=== PATIENT | male | born 1940 | race Caucasian/White ===

== ENCOUNTER 2018-09-17 22:54 | Inpatient (IN) | payer OTHER ==
[~2018-09-17] VITALS: Ht 172.7 cm; Wt 68.0 kg
[2018-09-17 22:55] VITALS: BP_SYST 150
[2018-09-17] MEDS ORDERED: NACL 0.9% 1,000 ML IV ONE (23:09)
[2018-09-17] MEDS ORDERED: KETOROLAC TROMETHAMINE 30 MG VIAL IVP ONE (23:15)
[2018-09-17 23:29] LABS: BASOPHILS % (AUTO) 0.2 % (0.0-2.0); EOSINOPHILS # (AUTO) 0.1 K/uL (0.0-0.4); EOSINOPHILS % (AUTO) 0.5 % (0.0-4.0); HEMATOCRIT 45.4 % (36-54); HEMOGLOBIN 14.7 g/dL (14.0-18.0); LYMPHOCYTES % (AUTO) 7.7 % (20.5-51.5); MEAN CORPUSCULAR HEMOGLOBIN 31 pg (27-31); MEAN CORPUSCULAR HGB CONC 32 % (32-36); MEAN CORPUSCULAR VOLUME 96 fL (79.0-98.0); MONOCYTES # (AUTO) 0.9 K/uL (0.0-1.0); MONOCYTES % (AUTO) 6.9 % (1.7-9.3); NEUTROPHILS # (AUTO) 10.7 K/uL (1.8-7.7); NEUTROPHILS % (AUTO) 84.7 % (40.0-70.0); PLATELET COUNT (AUTO) 218 K/uL (130-430); RED BLOOD CELL COUNT(AUTO) 4.75 MIL/uL (4.2-6.2); WHITE BLOOD COUNT (AUTO) 12.7 K/uL (4.8-10.8)
[2018-09-17 23:44] LABS: ANION GAP 8 (5-15); CALCIUM 10.1 mg/dL (8.4-11.0); CHLORIDE 100 mmol/L (98-107); CREATININE 0.93 mg/dL (0.55-1.30); GLUCOSE 176 mg/dL (70-99); POTASSIUM 3.9 mmol/L (3.5-5.1); SODIUM SERUM 136 mmol/L (136-145); UREA NITROGEN, BLOOD 15 mg/dL (8-21)
[2018-09-17 23:53] LABS: ALANINE AMINOTRANSFERASE 27 U/L (12-78); ALBUMIN 3.7 g/dL (3.4-4.8); ASPARTATE AMINOTRANSFERASE 24 U/L (10-37); TOTAL BILIRUBIN 0.6 mg/dL (0.0-1.0)
[2018-09-18 01:48] VITALS: BP_SYST 151
[2018-09-18] MEDS ORDERED: LIP20 PO (02:22)
[2018-09-18] MEDS ORDERED: LISI-600 PO (02:22)
[2018-09-18] MEDS ORDERED: CHOL200075 PO (02:23)
[2018-09-18] MEDS ORDERED: TIMO5DRO4 OP (02:24)
[2018-09-18] MEDS ORDERED: METO25TA6 PO (02:24)
[2018-09-18] MEDS ORDERED: XALEYE OP (02:25)
[2018-09-18] MEDS ORDERED: ASPI-858 PO (02:25)
[2018-09-18] MEDS ORDERED: CYAN-25 PO (02:27)
[2018-09-18] MEDS ORDERED: DONE10TA44 PO (02:27)
[2018-09-18] MEDS ORDERED: RISP0.5T12 PO (02:28)
[2018-09-18] MEDS ORDERED: FOLI-43 PO (02:29)
[2018-09-18] MEDS ORDERED: MIRA50TA PO (02:29)
[2018-09-18 02:45] VITALS: BP_SYST 151
[2018-09-18 08:00] VITALS: BP_SYST 150
[2018-09-18] MEDS: D5/0.45 NS 1,000 ML IV SCH ×3 (10:49→21:55)
[2018-09-18 11:07] VITALS: BP_SYST 156
[2018-09-18 15:02] VITALS: BP_SYST 139
[2018-09-18 19:25] VITALS: BP_SYST 139
[2018-09-19] MEDS ORDERED: LABETALOL 100 MG/ 20ML VIAL IVP PRN (00:45)
[2018-09-19] MEDS ORDERED: LORazepam 2 MG/ML VIAL IVP PRN (00:45)
[2018-09-19] MEDS: D5/0.45 NS 1,000 ML IV SCH ×2 (06:39→17:38)
[2018-09-19 06:47] LABS: HEMATOCRIT 41.8 % (36-54); RED BLOOD CELL COUNT(AUTO) 4.45 MIL/uL (4.2-6.2); WHITE BLOOD COUNT (AUTO) 16.2 K/uL (4.8-10.8)
[2018-09-19 06:48] LABS: BASOPHILS % (AUTO) 0.1 % (0.0-2.0); LYMPHOCYTES # (AUTO) 0.9 K/uL (1.0-5.5); LYMPHOCYTES % (AUTO) 5.5 % (20.5-51.5); MEAN CORPUSCULAR HEMOGLOBIN 32 pg (27-31); MEAN CORPUSCULAR HGB CONC 34 % (32-36); MEAN CORPUSCULAR VOLUME 94 fL (79.0-98.0); MONOCYTES # (AUTO) 1.2 K/uL (0.0-1.0); MONOCYTES % (AUTO) 7.1 % (1.7-9.3); NEUTROPHILS # (AUTO) 14.1 K/uL (1.8-7.7); NEUTROPHILS % (AUTO) 87.3 % (40.0-70.0); PLATELET COUNT (AUTO) 200 K/uL (130-430); RED CELL DISTRIBUTION WIDTH 13.4 % (9.0-15.0)
[2018-09-19 06:49] LABS: ANION GAP 9 (5-15); CALCIUM 9.8 mg/dL (8.4-11.0); CHLORIDE 100 mmol/L (98-107); CREATININE 0.85 mg/dL (0.55-1.30); GLUCOSE 178 mg/dL (70-99); POTASSIUM 3.7 mmol/L (3.5-5.1); SODIUM SERUM 134 mmol/L (136-145); UREA NITROGEN, BLOOD 14 mg/dL (8-21)
[2018-09-19 08:00] VITALS: BP_SYST 161
[2018-09-19] MEDS ORDERED: GASTROGRAFIN 120 ML ONE (13:06)
[2018-09-19 13:16] VITALS: BP_SYST 177
[2018-09-19] MEDS: LABETALOL 100 MG/ 20ML VIAL IVP PRN (14:27)
[2018-09-19] MEDS: ONDANSETRON HCL 4 MG/2 ML VIAL IVP PRN (15:34)
[2018-09-19 17:00] VITALS: BP_SYST 157
[2018-09-19 20:00] VITALS: BP_SYST 161
[2018-09-19] MEDS ORDERED: LATANOPROST 2.5 ML DROPS (XALATAN) OP SCH (21:00)
[2018-09-19] MEDS ORDERED: TIMOLOL MALEATE 0.5% OPHTHALMIC DROPS 5 ML OP SCH (21:00)
[2018-09-19] MEDS: AMPICILLIN SODIUM/SULBACTAM NA 3 GM in NS 100 ML IV SCH (21:44)
[2018-09-20] VITALS (17 sets, daily range): BP systolic 121–182
[2018-09-20] MEDS: ONDANSETRON HCL 4 MG/2 ML VIAL IVP PRN ×2 (01:31→19:37)
[2018-09-20] MEDS: D5/0.45 NS 1,000 ML IV SCH (03:45)
[2018-09-20] MEDS ORDERED: ALBUTEROL SULFATE 0.083% 2.5 MG/3 ML VIAL.NEB INH PRN (05:15)
[2018-09-20] MEDS: AMPICILLIN SODIUM/SULBACTAM NA 3 GM in NS 100 ML IV SCH ×3 (05:35→21:20)
[2018-09-20 06:43] LABS: ANION GAP 7 (5-15); C-REACTIVE PROTEIN QUANT 2.5 mg/dL (0-0.5); CALCIUM 9.8 mg/dL (8.4-11.0); CHLORIDE 99 mmol/L (98-107); CREATININE 0.97 mg/dL (0.55-1.30); GLUCOSE 222 mg/dL (70-99); POTASSIUM 3.2 mmol/L (3.5-5.1); SODIUM SERUM 135 mmol/L (136-145); UREA NITROGEN, BLOOD 19 mg/dL (8-21)
[2018-09-20 06:53] LABS: BASOPHILS % (AUTO) 0.1 % (0.0-2.0); HEMATOCRIT 43.1 % (36-54); HEMOGLOBIN 14.4 g/dL (14.0-18.0); LYMPHOCYTES # (AUTO) 0.6 K/uL (1.0-5.5); LYMPHOCYTES % (AUTO) 5.4 % (20.5-51.5); MEAN CORPUSCULAR HEMOGLOBIN 32 pg (27-31); MEAN CORPUSCULAR HGB CONC 34 % (32-36); MEAN CORPUSCULAR VOLUME 94 fL (79.0-98.0); MONOCYTES # (AUTO) 0.5 K/uL (0.0-1.0); MONOCYTES % (AUTO) 4.7 % (1.7-9.3); NEUTROPHILS # (AUTO) 10.1 K/uL (1.8-7.7); NEUTROPHILS % (AUTO) 89.8 % (40.0-70.0); PLATELET COUNT (AUTO) 201 K/uL (130-430); RED BLOOD CELL COUNT(AUTO) 4.59 MIL/uL (4.2-6.2); RED CELL DISTRIBUTION WIDTH 13.3 % (9.0-15.0); WHITE BLOOD COUNT (AUTO) 11.2 K/uL (4.8-10.8)
[2018-09-20] MEDS ORDERED: LEVOFLOXACIN 500 MG/D5W 100 ML IV ONE (08:00)
[2018-09-20 09:15] LABS: ERYTHROCYTE SEDIMENTATION RATE 13 MM/HR (0-15)
[2018-09-20] MEDS: TIMOLOL MALEATE 0.5% OPHTHALMIC DROPS 5 ML OP SCH ×2 (11:08→20:34)
[2018-09-20] MEDS ORDERED: POTASSIUM CHLORIDE 40 MEQ, LIDOCAINE JECT 2% PF 100 MG 50 MG in NS 250 ML IV ONE (12:00)
[2018-09-20] MEDS: LevALBUTEROL HCL 1.25 MG/0.5 ML *CONC.* VIAL.NEB (XOPENEX CONC.) INH SCH ×2 (15:37→20:17)
[2018-09-20] MEDS: D5NS 1,000 ML IV SCH ×2 (16:06→21:20)
[2018-09-20] MEDS: LATANOPROST 2.5 ML DROPS (XALATAN) OP SCH (20:22)
[2018-09-20] MEDS: LABETALOL 100 MG/ 20ML VIAL IVP PRN (23:17)
[2018-09-20] MEDS: MORPHINE 2 MG/ML INJ. SYRINGE IVP PRN (23:22)
[2018-09-21] VITALS (22 sets, daily range): BP systolic 111–174
[2018-09-21] MEDS: D5NS 1,000 ML IV SCH ×2 (03:19→18:11)
[2018-09-21] MEDS: ONDANSETRON HCL 4 MG/2 ML VIAL IVP PRN ×2 (04:17→09:38)
[2018-09-21 05:01] LABS: ALANINE AMINOTRANSFERASE 12 U/L (12-78); ALBUMIN 2.5 g/dL (3.4-4.8); ANION GAP 3 (5-15); ASPARTATE AMINOTRANSFERASE 14 U/L (10-37); CHLORIDE 107 mmol/L (98-107); CREATININE 0.91 mg/dL (0.55-1.30); GLUCOSE 155 mg/dL (70-99); POTASSIUM 3.4 mmol/L (3.5-5.1); SODIUM SERUM 140 mmol/L (136-145); TOTAL BILIRUBIN 0.5 mg/dL (0.0-1.0); UREA NITROGEN, BLOOD 21 mg/dL (8-21)
[2018-09-21 05:07] LABS: INR 1.1 (0.80-1.20); PROTHROMBIN TIME 11.4 SECS (9.5-12.5)
[2018-09-21 05:09] LABS: BASOPHILS # (AUTO) 0.1 K/uL (0.0-0.2); BASOPHILS % (AUTO) 0.8 % (0.0-2.0); EOSINOPHILS % (AUTO) 0.5 % (0.0-4.0); HEMATOCRIT 36.5 % (36-54); HEMOGLOBIN 12.2 g/dL (14.0-18.0); LYMPHOCYTES # (AUTO) 0.7 K/uL (1.0-5.5); LYMPHOCYTES % (AUTO) 7.8 % (20.5-51.5); MEAN CORPUSCULAR HEMOGLOBIN 32 pg (27-31); MEAN CORPUSCULAR HGB CONC 33 % (32-36); MONOCYTES # (AUTO) 0.5 K/uL (0.0-1.0); MONOCYTES % (AUTO) 5.6 % (1.7-9.3); NEUTROPHILS # (AUTO) 8.1 K/uL (1.8-7.7); NEUTROPHILS % (AUTO) 85.3 % (40.0-70.0); PLATELET COUNT (AUTO) 155 K/uL (130-430); RED CELL DISTRIBUTION WIDTH 13.1 % (9.0-15.0); WHITE BLOOD COUNT (AUTO) 9.4 K/uL (4.8-10.8)
[2018-09-21 05:17] LABS: MEAN CORPUSCULAR VOLUME 96 fL (79.0-98.0)
[2018-09-21] MEDS: AMPICILLIN SODIUM/SULBACTAM NA 3 GM in NS 100 ML IV SCH ×3 (05:26→22:00)
[2018-09-21 05:27] LABS: C-REACTIVE PROTEIN QUANT 10.7 mg/dL (0-0.5)
[2018-09-21 06:08] LABS: ERYTHROCYTE SEDIMENTATION RATE 25 MM/HR (0-15)
[2018-09-21] MEDS: LevALBUTEROL HCL 1.25 MG/0.5 ML *CONC.* VIAL.NEB (XOPENEX CONC.) INH SCH ×3 (07:49→20:27)
[2018-09-21] MEDS ORDERED: POTASSIUM CHLORIDE 40 MEQ, LIDOCAINE JECT 2% PF 100 MG 50 MG in NS 250 ML IV ONE (09:30)
[2018-09-21] MEDS: LEVOFLOXACIN 500 MG/D5W 100 ML IV SCH (09:37)
[2018-09-21] MEDS: TIMOLOL MALEATE 0.5% OPHTHALMIC DROPS 5 ML OP SCH ×2 (09:38→20:39)
[2018-09-21 15:04] LABS: BILIRUBIN,URINE NEGATIVE (NEGATIVE); BLOOD, URINE NEGATIVE (NEGATIVE); CLARITY/URINE CLEAR (CLEAR); COLOR,URINE YELLOW (YELLOW); GLUCOSE,URINE NEGATIVE (NEGATIVE); KETONES,URINE NEGATIVE (NEGATIVE); LEUKOCYTE ESTERASE ,URINE NEGATIVE (NEGATIVE); NITRITE, URINE NEGATIVE (NEGATIVE); PROTEIN URINE 1+ (NEGATIVE)
[2018-09-21 15:18] LABS: BACTERIA,URINE FEW /HPF (None Seen); MUCUS,URINE 2+ /LPF (None Seen); RBC,URINE 0-3 /HPF (0-3); WBC,URINE 0-3 /HPF (0-3)
[2018-09-21] MEDS ORDERED: LR 1,000 ML IV SCH (16:23)
[2018-09-21] MEDS ORDERED: MORPHINE 4 MG/ML INJ. SYRINGE IVP PRN ×3 (16:30)
[2018-09-21] MEDS ORDERED: METOCLOPRAMIDE HCL 10 MG/2 ML VIAL IVP PRN (16:30)
[2018-09-21] MEDS ORDERED: MIDAZOLAM HCL 5 MG/ML VIAL (VERSED) IV ONE (16:55)
[2018-09-21] MEDS ORDERED: LR 1,000 ML IV.SOLN IV ONE (16:55)
[2018-09-21] MEDS ORDERED: fentaNYL CITRATE/PF 100 MCG/2 ML AMP ONE (16:55)
[2018-09-21] MEDS ORDERED: SUGAMMADEX SODIUM 200 MG/2 ML VIAL IV ONE (16:55)
[2018-09-21] MEDS ORDERED: ROCURONIUM BROMIDE 10 MG/ML (ZEMURON) ONE (16:55)
[2018-09-21] MEDS ORDERED: ONDANSETRON HCL 4 MG/2 ML VIAL ONE (16:55)
[2018-09-21] MEDS ORDERED: NS IRRIG SOLN 1000 ML IR ONE (16:55)
[2018-09-21] MEDS ORDERED: SEVOFLURANE 15 MIN GAS INH ONE (16:55)
[2018-09-21] MEDS ORDERED: SUCCINYLCHOLINE CHLORIDE 20 MG/ML(QUELICIN) ONE (16:55)
[2018-09-21] MEDS ORDERED: PROPOFOL 200MG/ 20ML VIAL (DIPRIVAN) IV ONE (16:55)
[2018-09-21] MEDS ORDERED: MORPHINE 4 MG/ML INJ. SYRINGE ONE (17:10)
[2018-09-21] MEDS: LABETALOL 100 MG/ 20ML VIAL IVP PRN (20:01)
[2018-09-21] MEDS: MORPHINE 2 MG/ML INJ. SYRINGE IVP PRN ×2 (20:03→22:26)
[2018-09-21] MEDS: LATANOPROST 2.5 ML DROPS (XALATAN) OP SCH (20:59)
[2018-09-22] VITALS (24 sets, daily range): BP systolic 112–149
[2018-09-22] MEDS: MORPHINE 2 MG/ML INJ. SYRINGE IVP PRN ×6 (01:34→22:10)
[2018-09-22] MEDS: D5NS 1,000 ML IV SCH (03:38)
[2018-09-22] MEDS: AMPICILLIN SODIUM/SULBACTAM NA 3 GM in NS 100 ML IV SCH ×3 (05:31→21:36)
[2018-09-22 06:22] LABS: EOSINOPHILS % (AUTO) 0.3 % (0.0-4.0); HEMATOCRIT 32.9 % (36-54); HEMOGLOBIN 11.1 g/dL (14.0-18.0); LYMPHOCYTES # (AUTO) 0.6 K/uL (1.0-5.5); LYMPHOCYTES % (AUTO) 5.7 % (20.5-51.5); MEAN CORPUSCULAR HEMOGLOBIN 32 pg (27-31); MEAN CORPUSCULAR HGB CONC 34 % (32-36); MEAN CORPUSCULAR VOLUME 96 fL (79.0-98.0); MONOCYTES # (AUTO) 0.5 K/uL (0.0-1.0); MONOCYTES % (AUTO) 5.3 % (1.7-9.3); NEUTROPHILS # (AUTO) 9.2 K/uL (1.8-7.7); NEUTROPHILS % (AUTO) 88.7 % (40.0-70.0); PLATELET COUNT (AUTO) 155 K/uL (130-430); RED BLOOD CELL COUNT(AUTO) 3.44 MIL/uL (4.2-6.2); WHITE BLOOD COUNT (AUTO) 10.3 K/uL (4.8-10.8)
[2018-09-22 06:27] LABS: ALANINE AMINOTRANSFERASE 15 U/L (12-78); ANION GAP 4 (5-15); ASPARTATE AMINOTRANSFERASE 16 U/L (10-37); C-REACTIVE PROTEIN QUANT 6.9 mg/dL (0-0.5); CALCIUM 8.7 mg/dL (8.4-11.0); CHLORIDE 110 mmol/L (98-107); CREATININE 0.84 mg/dL (0.55-1.30); GLUCOSE 189 mg/dL (70-99); POTASSIUM 3.5 mmol/L (3.5-5.1); SODIUM SERUM 141 mmol/L (136-145); TOTAL BILIRUBIN 0.4 mg/dL (0.0-1.0); UREA NITROGEN, BLOOD 17 mg/dL (8-21)
[2018-09-22] MEDS: LevALBUTEROL HCL 1.25 MG/0.5 ML *CONC.* VIAL.NEB (XOPENEX CONC.) INH SCH ×3 (07:35→20:41)
[2018-09-22 07:46] LABS: ERYTHROCYTE SEDIMENTATION RATE 33 MM/HR (0-15)
[2018-09-22] MEDS: TIMOLOL MALEATE 0.5% OPHTHALMIC DROPS 5 ML OP SCH ×2 (08:25→20:21)
[2018-09-22] MEDS: LEVOFLOXACIN 500 MG/D5W 100 ML IV SCH (08:25)
[2018-09-22] MEDS: METOCLOPRAMIDE HCL 10 MG/2 ML VIAL IVP SCH ×3 (12:21→23:34)
[2018-09-22] MEDS ORDERED: FUROSEMIDE 20 MG/2 ML VIAL IVP ONE (14:30)
[2018-09-22] MEDS ORDERED: POTASSIUM CHLORIDE 40 MEQ, LIDOCAINE JECT 2% PF 100 MG 50 MG in NS 250 ML IV ONE (15:00)
[2018-09-22] MEDS: D5/0.45 NS 1,000 ML IV SCH (15:35)
[2018-09-22] MEDS: guaiFENesin 200 MG/10 ML UDC PO PRN (17:41)
[2018-09-22] MEDS: LATANOPROST 2.5 ML DROPS (XALATAN) OP SCH (20:31)
[2018-09-23] VITALS (14 sets, daily range): BP systolic 118–174
[2018-09-23] MEDS: guaiFENesin 200 MG/10 ML UDC PO PRN ×2 (00:27→09:37)
[2018-09-23] MEDS: MORPHINE 2 MG/ML INJ. SYRINGE IVP PRN (00:49)
[2018-09-23] MEDS: LABETALOL 100 MG/ 20ML VIAL IVP PRN (03:35)
[2018-09-23] MEDS: D5/0.45 NS 1,000 ML IV SCH ×2 (04:29→17:11)
[2018-09-23] MEDS: METOCLOPRAMIDE HCL 10 MG/2 ML VIAL IVP SCH ×3 (05:26→17:11)
[2018-09-23] MEDS: AMPICILLIN SODIUM/SULBACTAM NA 3 GM in NS 100 ML IV SCH ×3 (05:26→22:18)
[2018-09-23 05:50] LABS: BASOPHILS % (AUTO) 0.4 % (0.0-2.0); EOSINOPHILS # (AUTO) 0.3 K/uL (0.0-0.4); EOSINOPHILS % (AUTO) 2.9 % (0.0-4.0); HEMATOCRIT 34.7 % (36-54); HEMOGLOBIN 11.5 g/dL (14.0-18.0); LYMPHOCYTES # (AUTO) 0.7 K/uL (1.0-5.5); LYMPHOCYTES % (AUTO) 6.3 % (20.5-51.5); MEAN CORPUSCULAR HEMOGLOBIN 32 pg (27-31); MEAN CORPUSCULAR HGB CONC 33 % (32-36); MEAN CORPUSCULAR VOLUME 97 fL (79.0-98.0); MONOCYTES # (AUTO) 0.8 K/uL (0.0-1.0); MONOCYTES % (AUTO) 6.7 % (1.7-9.3); NEUTROPHILS % (AUTO) 83.7 % (40.0-70.0); PLATELET COUNT (AUTO) 176 K/uL (130-430); RED BLOOD CELL COUNT(AUTO) 3.58 MIL/uL (4.2-6.2); RED CELL DISTRIBUTION WIDTH 13.2 % (9.0-15.0); WHITE BLOOD COUNT (AUTO) 11.8 K/uL (4.8-10.8)
[2018-09-23 06:14] LABS: ANION GAP 6 (5-15); CALCIUM 8.7 mg/dL (8.4-11.0); CHLORIDE 107 mmol/L (98-107); CREATININE 0.83 mg/dL (0.55-1.30); GLUCOSE 160 mg/dL (70-99); POTASSIUM 3.3 mmol/L (3.5-5.1); SODIUM SERUM 143 mmol/L (136-145); UREA NITROGEN, BLOOD 17 mg/dL (8-21)
[2018-09-23 06:21] LABS: ALANINE AMINOTRANSFERASE 20 U/L (12-78); ALBUMIN 2.1 g/dL (3.4-4.8); ASPARTATE AMINOTRANSFERASE 24 U/L (10-37); TOTAL BILIRUBIN 0.4 mg/dL (0.0-1.0)
[2018-09-23 06:34] LABS: C-REACTIVE PROTEIN QUANT 6.4 mg/dL (0-0.5)
[2018-09-23 06:49] LABS: ERYTHROCYTE SEDIMENTATION RATE 53 MM/HR (0-15)
[2018-09-23] MEDS: LevALBUTEROL HCL 1.25 MG/0.5 ML *CONC.* VIAL.NEB (XOPENEX CONC.) INH SCH ×3 (07:13→20:32)
[2018-09-23] MEDS: TIMOLOL MALEATE 0.5% OPHTHALMIC DROPS 5 ML OP SCH ×2 (09:39→21:00)
[2018-09-23] MEDS ORDERED: BISACODYL 10 MG/SUPPOSITORY RC ONE (10:45)
[2018-09-23] MEDS: ONDANSETRON HCL 4 MG/2 ML VIAL IVP PRN (12:28)
[2018-09-23] MEDS ORDERED: LISINOPRIL 10 MG TABLET (PRINIVIL) PO ONE (13:30)
[2018-09-23] MEDS: hydrALAZINE HCL 20 MG/ML VIAL IVP PRN (18:55)
[2018-09-23] MEDS: LATANOPROST 2.5 ML DROPS (XALATAN) OP SCH (21:00)
[2018-09-24 00:27] VITALS: BP_SYST 137
[2018-09-24] MEDS: METOCLOPRAMIDE HCL 10 MG/2 ML VIAL IVP SCH ×5 (04:14→23:50)
[2018-09-24] MEDS: D5/0.45 NS 1,000 ML IV SCH ×2 (05:04→22:11)
[2018-09-24] MEDS: AMPICILLIN SODIUM/SULBACTAM NA 3 GM in NS 100 ML IV SCH ×3 (05:05→22:00)
[2018-09-24 06:22] LABS: BASOPHILS % (AUTO) 0.1 % (0.0-2.0); EOSINOPHILS # (AUTO) 0.1 K/uL (0.0-0.4); EOSINOPHILS % (AUTO) 0.6 % (0.0-4.0); HEMATOCRIT 34.9 % (36-54); HEMOGLOBIN 12.1 g/dL (14.0-18.0); LYMPHOCYTES # (AUTO) 0.6 K/uL (1.0-5.5); LYMPHOCYTES % (AUTO) 5.2 % (20.5-51.5); MEAN CORPUSCULAR HEMOGLOBIN 33 pg (27-31); MEAN CORPUSCULAR HGB CONC 35 % (32-36); MEAN CORPUSCULAR VOLUME 95 fL (79.0-98.0); MONOCYTES # (AUTO) 0.9 K/uL (0.0-1.0); MONOCYTES % (AUTO) 7.4 % (1.7-9.3); NEUTROPHILS # (AUTO) 10.7 K/uL (1.8-7.7); NEUTROPHILS % (AUTO) 86.7 % (40.0-70.0); PLATELET COUNT (AUTO) 194 K/uL (130-430); RED BLOOD CELL COUNT(AUTO) 3.67 MIL/uL (4.2-6.2); RED CELL DISTRIBUTION WIDTH 13.2 % (9.0-15.0); WHITE BLOOD COUNT (AUTO) 12.3 K/uL (4.8-10.8)
[2018-09-24 06:48] LABS: ALANINE AMINOTRANSFERASE 30 U/L (12-78); ALBUMIN 2.1 g/dL (3.4-4.8); ANION GAP 6 (5-15); ASPARTATE AMINOTRANSFERASE 23 U/L (10-37); C-REACTIVE PROTEIN QUANT 6.4 mg/dL (0-0.5); CALCIUM 8.8 mg/dL (8.4-11.0); CHLORIDE 107 mmol/L (98-107); CREATININE 0.74 mg/dL (0.55-1.30); GLUCOSE 183 mg/dL (70-99); POTASSIUM 3.1 mmol/L (3.5-5.1); SODIUM SERUM 142 mmol/L (136-145); TOTAL BILIRUBIN 0.5 mg/dL (0.0-1.0); UREA NITROGEN, BLOOD 16 mg/dL (8-21)
[2018-09-24] MEDS: LevALBUTEROL HCL 1.25 MG/0.5 ML *CONC.* VIAL.NEB (XOPENEX CONC.) INH SCH ×3 (07:13→19:34)
[2018-09-24] MEDS ORDERED: KCL 20 mEq in 100 mL (PREMIX) 100 ML IV ONE (07:15)
[2018-09-24 07:43] LABS: ERYTHROCYTE SEDIMENTATION RATE 49 MM/HR (0-15)
[2018-09-24 08:00] VITALS: BP_SYST 146
[2018-09-24] MEDS: TIMOLOL MALEATE 0.5% OPHTHALMIC DROPS 5 ML OP SCH ×2 (08:53→22:03)
[2018-09-24] MEDS: LISINOPRIL 10 MG TABLET (PRINIVIL) PO SCH (08:53)
[2018-09-24 12:00] VITALS: BP_SYST 135
[2018-09-24 16:00] VITALS: BP_SYST 158
[2018-09-24] MEDS: LATANOPROST 2.5 ML DROPS (XALATAN) OP SCH (22:02)
[2018-09-24 23:51] VITALS: BP_SYST 152
[2018-09-25] MEDS: AMPICILLIN SODIUM/SULBACTAM NA 3 GM in NS 100 ML IV SCH ×2 (05:13→14:20)
[2018-09-25] MEDS: METOCLOPRAMIDE HCL 10 MG/2 ML VIAL IVP SCH ×3 (05:13→17:49)
[2018-09-25 07:00] LABS: BASOPHILS % (AUTO) 0.4 % (0.0-2.0); EOSINOPHILS # (AUTO) 0.2 K/uL (0.0-0.4); EOSINOPHILS % (AUTO) 2.4 % (0.0-4.0); HEMATOCRIT 36.3 % (36-54); HEMOGLOBIN 12.3 g/dL (14.0-18.0); LYMPHOCYTES % (AUTO) 9.8 % (20.5-51.5); MEAN CORPUSCULAR HEMOGLOBIN 32 pg (27-31); MEAN CORPUSCULAR HGB CONC 34 % (32-36); MEAN CORPUSCULAR VOLUME 96 fL (79.0-98.0); MONOCYTES # (AUTO) 1.2 K/uL (0.0-1.0); MONOCYTES % (AUTO) 11.2 % (1.7-9.3); NEUTROPHILS % (AUTO) 76.2 % (40.0-70.0); PLATELET COUNT (AUTO) 231 K/uL (130-430); RED CELL DISTRIBUTION WIDTH 12.9 % (9.0-15.0); WHITE BLOOD COUNT (AUTO) 10.4 K/uL (4.8-10.8)
[2018-09-25 07:04] LABS: ALANINE AMINOTRANSFERASE 35 U/L (12-78); ANION GAP 2 (5-15); ASPARTATE AMINOTRANSFERASE 24 U/L (10-37); C-REACTIVE PROTEIN QUANT 5.4 mg/dL (0-0.5); CALCIUM 8.8 mg/dL (8.4-11.0); CHLORIDE 108 mmol/L (98-107); CREATININE 0.85 mg/dL (0.55-1.30); GLUCOSE 149 mg/dL (70-99); SODIUM SERUM 140 mmol/L (136-145); TOTAL BILIRUBIN 0.5 mg/dL (0.0-1.0); UREA NITROGEN, BLOOD 18 mg/dL (8-21)
[2018-09-25 07:16] LABS: POTASSIUM 2.9 mmol/L (3.5-5.1)
[2018-09-25] MEDS: LevALBUTEROL HCL 1.25 MG/0.5 ML *CONC.* VIAL.NEB (XOPENEX CONC.) INH SCH ×2 (07:43→15:38)
[2018-09-25 08:24] VITALS: BP_SYST 144
[2018-09-25] MEDS ORDERED: POTASSIUM CHLORIDE 40 MEQ in NS 250 ML IV ONE (08:30)
[2018-09-25] MEDS: TIMOLOL MALEATE 0.5% OPHTHALMIC DROPS 5 ML OP SCH (08:54)
[2018-09-25] MEDS: LISINOPRIL 10 MG TABLET (PRINIVIL) PO SCH (08:55)
[2018-09-25 09:38] LABS: ERYTHROCYTE SEDIMENTATION RATE 38 MM/HR (0-15)
[2018-09-25] MEDS: hydrALAZINE HCL 20 MG/ML VIAL IVP PRN (11:39)
[2018-09-25 12:25] VITALS: BP_SYST 165
[2018-09-25] MEDS: D5/0.45 NS 1,000 ML IV SCH (14:20)
[2018-09-25 17:15] VITALS: BP_SYST 133
[2018-09-25 17:27] VITALS: BP_SYST 133
== END 2018-09-25 19:22 | DRG 853 ==
LOC: SED 22:54 → SMU 09-18 01:18 → STU 09-20 06:46 → SIC 09-20 09:21 → STU 09-23 16:13
PROVIDERS: ADMIT Preventive Medicine Preventive Medicine/Occupational Environmental Medicine; ATTEND Preventive Medicine Preventive Medicine/Occupational Environmental Medicine
PROC: 0D9670Z Drainage of Stomach with Drainage Device, Via Natural or Artificial Opening (ICD-10-PCS; principal; 2018-09-20)
PROC: 0DTJ0ZZ Resection of Appendix, Open Approach (ICD-10-PCS; 2018-09-21)
PROC: 0WQF0ZZ Repair Abdominal Wall, Open Approach (ICD-10-PCS; 2018-09-21)
PROC: 0DN80ZZ Release Small Intestine, Open Approach (ICD-10-PCS; 2018-09-21)
DX: A41.9 Sepsis, unspecified organism (principal); J69.0 Pneumonitis due to inhalation of food and vomit; J96.01 Acute respiratory failure with hypoxia; K65.9 Peritonitis, unspecified; E43 Unspecified severe protein-calorie malnutrition; E87.1 Hypo-osmolality and hyponatremia; K42.0 Umbilical hernia with obstruction, without gangrene; K55.9 Vascular disorder of intestine, unspecified; K56.600 Partial intestinal obstruction, unspecified as to cause; I25.10 Atherosclerotic heart disease of native coronary artery without angina pectoris; I10 Essential (primary) hypertension; D64.9 Anemia, unspecified; E78.5 Hyperlipidemia, unspecified; E87.6 Hypokalemia; Z96.643 Presence of artificial hip joint, bilateral; R00.1 Bradycardia, unspecified; F03.90 Unspecified dementia, unspecified severity, without behavioral disturbance, psychotic disturbance, mood disturbance, and anxiety; R73.9 Hyperglycemia, unspecified; H40.9 Unspecified glaucoma; K57.30 Diverticulosis of large intestine without perforation or abscess without bleeding; K66.0 Peritoneal adhesions (postprocedural) (postinfection); Z90.49 Acquired absence of other specified parts of digestive tract; Z95.3 Presence of xenogenic heart valve; Z95.1 Presence of aortocoronary bypass graft; Z98.84 Bariatric surgery status; Z68.22 Body mass index [BMI] 22.0-22.9, adult
CPT/HCPCS: 36415; 36600; 71045; 74018; 74245-TC; 80048; 80053; 81000-TC; 82803-TC; 84484; 85025; 85610-TC; 85651-TC; 85730-TC; 86140; 87040-TC; 87081; 87086; 88304; 93005; 93306; 94010; 94640; 94760; 96361; 96374; 99285; C9399; J0295; J0330; J0360; J1885; J1940; J1956; J2060; J2250; J2270; J2405; J2704; J2765; J3010; J3480; J3490; J7042; J7050; J7120; J7612; J7613; Q9963

== ENCOUNTER 2018-10-04 02:12 | Emergency (ER) | payer OTHER ==
[~2018-10-04] VITALS: Ht 167.6 cm; Wt 63.5 kg
[~2018-10-04 02:12] MED LIST: ASPI-858 PO; CHOL200075 PO; CYAN-25 PO; DONE10TA44 PO; FOLI-43 PO; LIP20 PO; LISI-600 PO; METO25TA6 PO; MIRA50TA PO; RISP0.5T12 PO; TIMO5DRO4 OP; XALEYE OP
[2018-10-04 02:15] VITALS: BP_SYST 162
--- NOTE | 2018-10-04 02:15 | NUR ---
Placed in room 05 . Placed on hospital monitor, blood pressure machine and pulse oximeter. To gown for exam. Side rails up. Report given to JEREMIAH Wallace.
--- NOTE | 2018-10-04 02:15 | NUR ---
Pt c/o hiccups with intermittent abdominal pain and N/V since 1800. Pt denies SOB, C/P localized to mid lower chest, non-radiating. No hiccups or vomiting at this time. Pt poor historian with short-term memory loss, so most information obtained from pt.'s . Pt s/p abdominal sx r/t tissue adhesions performed 1.5 weeks ago. Dsg to mid lower abdomen secure and intact, clean, no drainage noted. Pt states that dsg was changed by PT yesterday.
--- NOTE | 2018-10-04 02:20 | NUR ---
ER at bedside examining patient.
[2018-10-04] MEDS ORDERED: NACL 0.9% 1,000 ML IV ONE (02:22)
--- NOTE | 2018-10-04 02:25 | NUR ---
Patient unable to elaborate on medical condition without at bedside. provided more accurate medical history informing staff of patient's short term memory loss- possible Alzheimer's. made aware.
[2018-10-04] MEDS ORDERED: MORPHINE 4 MG/ML INJ. SYRINGE IVP ONE (02:30)
[2018-10-04] MEDS ORDERED: ONDANSETRON HCL 4 MG/2 ML VIAL IVP ONE (02:30)
[2018-10-04] MEDS ORDERED: ONDANSETRON HCL 4 MG/2 ML VIAL ONE (02:40)
[2018-10-04] MEDS ORDERED: MORPHINE 4 MG/ML INJ. SYRINGE ONE (02:40)
--- NOTE | 2018-10-04 02:45 | NUR ---
# 20 gauge angiocath placed to LAC. Use of asceptic technique. Opsite placed over site. Blood return noted. Blood for lab drawn from site. Flushed with 10 cc of normal saline. No evidence of infiltration noted. Patient tolerated well.
--- NOTE | 2018-10-04 02:55 | NUR ---
X-ray at bedside.
[2018-10-04 03:30] LABS: BASOPHILS % (AUTO) 0.5 % (0.0-2.0); EOSINOPHILS # (AUTO) 0.5 K/uL (0.0-0.4); EOSINOPHILS % (AUTO) 5.2 % (0.0-4.0); HEMATOCRIT 40.2 % (36-54); HEMOGLOBIN 13.4 g/dL (14.0-18.0); LYMPHOCYTES # (AUTO) 1.2 K/uL (1.0-5.5); LYMPHOCYTES % (AUTO) 13.6 % (20.5-51.5); MEAN CORPUSCULAR HEMOGLOBIN 32 pg (27-31); MEAN CORPUSCULAR HGB CONC 34 % (32-36); MEAN CORPUSCULAR VOLUME 96 fL (79.0-98.0); MONOCYTES # (AUTO) 0.7 K/uL (0.0-1.0); MONOCYTES % (AUTO) 8.1 % (1.7-9.3); NEUTROPHILS # (AUTO) 6.3 K/uL (1.8-7.7); NEUTROPHILS % (AUTO) 72.6 % (40.0-70.0); PLATELET COUNT (AUTO) 432 K/uL (130-430); RED BLOOD CELL COUNT(AUTO) 4.17 MIL/uL (4.2-6.2); WHITE BLOOD COUNT (AUTO) 8.7 K/uL (4.8-10.8)
[2018-10-04 03:35] LABS: ANION GAP 9 (5-15); CALCIUM 9.4 mg/dL (8.4-11.0); CHLORIDE 102 mmol/L (98-107); CREATININE 0.86 mg/dL (0.55-1.30); GLUCOSE 103 mg/dL (70-99); POTASSIUM 3.2 mmol/L (3.5-5.1); SODIUM SERUM 137 mmol/L (136-145); UREA NITROGEN, BLOOD 8 mg/dL (8-21)
[2018-10-04 03:38] LABS: INR 1.1 (0.80-1.20); PROTHROMBIN TIME 11.3 SECS (9.5-12.5)
[2018-10-04 03:41] LABS: ALANINE AMINOTRANSFERASE 18 U/L (12-78); ASPARTATE AMINOTRANSFERASE 19 U/L (10-37); LIPASE 311 U/L (73-393); TOTAL BILIRUBIN 0.5 mg/dL (0.0-1.0)
--- NOTE | 2018-10-04 04:10 | NUR ---
Pt hiccupping. Dr. Lebron notified. Pt to be medicated with Thorazine IM.
[2018-10-04] MEDS ORDERED: chlorproMAZINE HCL 50 MG/ 2 ML AMP IM ONE (04:15)
[2018-10-04] MEDS ORDERED: chlorproMAZINE HCL 50 MG/ 2 ML AMP ONE (04:22)
[2018-10-04 04:30] VITALS: BP_SYST 138
--- NOTE | 2018-10-04 04:30 | NUR ---
Patient given written and verbal discharge instructions and verbalizes understanding. ER MD discussed with patient the results and treatment provided. Patient in stable condition. ID arm band removed. IV catheter removed intact and dressing applied, no active bleeding. Rx of Zofran, Ranitidine given. Patient educated on pain management and to follow up with PMD. Pain Scale 0/10. Opportunity for questions provided and answered. Medication side effect fact sheet provided.
[2018-10-04] MEDS ORDERED: THORAZINE (chlorproMAZINE) 25 MG TAB PO SCH (21:00)
== END 2018-10-04 04:30 | disposition home or self-care (01) ==
LOC: SED 02:12
DX: K21.9 Gastro-esophageal reflux disease without esophagitis (principal); F03.90 Unspecified dementia, unspecified severity, without behavioral disturbance, psychotic disturbance, mood disturbance, and anxiety; Z98.890 Other specified postprocedural states; Z86.79 Personal history of other diseases of the circulatory system; Z79.82 Long term (current) use of aspirin; Z79.899 Other long term (current) drug therapy
CPT/HCPCS: 36415; 71045; 80053; 82550; 83605; 83690; 84484; 85025; 85610; 85730; 87040; 93005; 96361; 96374; 96375; 99285; J2270; J2405; J3230; J7030; Q0161